=== PATIENT | female | born 1975 | race Caucasian/White ===

== ENCOUNTER → 2019-12-14 | Outpatient (CLI) | payer OTHER ==
--- NOTE | 2019-12-14 10:05 | RAD ---
EXAM: Chest, 2 views. HISTORY: Shortness of air. COMPARISON: None. FINDINGS: 2 views of the chest are obtained. There is no infiltrate, pleural effusion or pneumothorax. There is hyperinflation due to emphysema. There is apical pleural parenchymal scarring. There are circumscribed nodules overlying the lower lungs due to nipple shadows. IMPRESSION: 1. Emphysema with associated hyperinflation. 2. Bilateral apical pleural parenchymal scarring. Electronically signed by: Alina Juares MD (12/14/2019 10:02 AM) [facility] [place]
== END | disposition home or self-care (01) ==
LOC: DXRAD 09:43
PROVIDERS: ATTEND Family Medicine
DX: J43.8 Other emphysema (principal); J98.4 Other disorders of lung
CPT/HCPCS: 71046